=== PATIENT | male | born 1990 | race American Indian/Alaskan Native ===

== ENCOUNTER 2019-03-14 12:35 | Emergency (ER) | payer OTHER ==
[2019-03-14 12:41] VITALS: BP 127/75
[2019-03-14] MEDS ORDERED: LEVAQUIN 750MG/150ML 0 MG/0 ML BAG IV ONE (13:17)
[2019-03-14] MEDS ORDERED: NACL 0.9% 500 ML 0 ML ONE (13:44)
--- NOTE | 2019-03-14 14:22 | XRay Report ---
LEFT TIBIA AND FIBULA, 2 VIEWS INDICATION: left lower leg pain. COMPARISON: None. IMPRESSION: No acute osseous or soft tissue abnormality. No significant DJD. Signer Name: Moises Rai Jr, MD Signed: 03/14/2019 2:18 PM Workstation Name: [id number]
--- NOTE | 2019-03-14 15:01 | Emergency Department Report ---
ED General Adult HPI - General Chief complaint: Extremity Problem,Nontraumatic Stated complaint: LT LEG PAIN/RT EYE CHECK Time Seen by Provider: 03/14/19 14:39 Source: patient Mode of arrival: Ambulatory Limitations: No Limitations - History of Present Illness Initial comments: Patient is a 29-year-old male presents the emergency room with complaints of left anterior suggs pain that began last week. pt states that he was jumping over a guard rail and hit his suggs against the rail. Patient states he has had some pain to the site. Patient denies any cuts or abrasions. He has been ambulatory without difficulty. Patient also presents emergency room with complaints of right lower eyelid edema that began 4 days ago. pt states that he has a stye and has been using warm compresses but still not gone down yet. he denies any vision changes or anything getting in the eye. He denies any past medical history or allergies to medications. pt does wear contacts and currently has them in. - Related Data Previous Rx's Medication Instructions Recorded Last Taken Type Erythromycin [Erythromycin Ophth 1 applic OD QID 5 Days #1 tube 03/14/19 Unknown Rx Oint] Allergies Allergy/AdvReac Type Severity Reaction Status Date / Time No Known Allergies Allergy Verified 03/14/19 12:37 ED Review of Systems ROS: Stated complaint: LT LEG PAIN/RT EYE CHECK Other details as noted in HPI Comment: All other systems reviewed and negative ED Past Medical Hx - Past Medical History Previous Medical History?: No - Surgical History Past Surgical History?: No - Social History Smoking Status: Never Smoker Substance Use Type: None - Medications Home Medications: Home Medications Medication Instructions Recorded Confirmed Last Taken Type Erythromycin [Erythromycin Ophth 1 applic OD QID 5 Days #1 tube 03/14/19 Unknown Rx Oint] ED Physical Exam - General Limitations: No Limitations General appearance: alert, in no apparent distress - Head Head exam: Present: atraumatic, normocephalic - Eye Eye exam: Present: PERRL, EOMI, other (edema present to the right lower eyelid, internal hordeolum present to the right lower eyelid which comes to a white head). Absent: scleral icterus, conjunctival injection, nystagmus, periorbital tenderness - ENT ENT exam: Present: mucous membranes moist - Respiratory Respiratory exam: Present: normal lung sounds bilaterally. Absent: respiratory distress, wheezes, rales, rhonchi, stridor, accessory muscle use, decreased breath sounds, prolonged expiratory - Cardiovascular Cardiovascular Exam: Present: regular rate, normal rhythm, normal heart sounds. Absent: systolic murmur, diastolic murmur, rubs, gallop - Extremities Exam Extremities exam: Present: other (TTP over the left anterior suggs, no deformities, contusion present to the left suggs, 2+ dp and pt pulses, sensation intact) - Neurological Exam Neurological exam: Present: alert, oriented X3 - Psychiatric Psychiatric exam: Present: normal affect, normal mood - Skin Skin exam: Present: warm, dry, intact ED Course Vital Signs 03/14/19 12:40 Temperature 98.3 F Pulse Rate 73 Respiratory 20 Rate Blood Pressure 127/75 O2 Sat by Pulse 98 Oximetry ED Medical Decision Making - Radiology Data Radiology results: report reviewed LEFT TIBIA AND FIBULA, 2 VIEWS INDICATION: left lower leg pain. COMPARISON: None. IMPRESSION: No acute osseous or soft tissue abnormality. No significant DJD. Signer Name: Moises Rai Jr, MD Signed: 03/14/2019 2:18 PM Workstation Name: [id number] Transcribed By: TTR Dictated By: MOISES RAI JR, MD Electronically Authenticated By: MOISES RAI JR, MD Signed Date/Time: 03/14/19 1418 - Medical Decision Making Patient is a 29-year-old male presents the emergency room with complaints of left anterior suggs pain that began last week. pt states that he was jumping over a guard rail and hit his suggs against the rail. Patient states he has had some pain to the site. Patient denies any cuts or abrasions. He has been ambulatory without difficulty. Patient also presents emergency room with complaints of right lower eyelid edema that began 4 days ago. pt states that he has a stye and has been using warm compresses but still not gone down yet. he denies any vision changes or anything getting in the eye. He denies any past medical history or allergies to medications. pt does wear contacts and currently has them in. vitals are normal. on exam: edema present to the right lower eyelid, internal hordeolum present to the right lower eyelid which comes to a white head, TTP over the left anterior suggs, no deformities, contusion present to the left suggs, 2+ dp and pt pulses, sensation intact. XR of the left tib/fib with no acute process. pt given prescription for erythromycin ophthalmic ointment. advised pt to please use medication as prescribed. please take out your contacts and wear your eyeglasses for the next several days. use warm compresses three times a day to the right lower eyelid. may use ice, ibuprofen or tylenol, and leg elevation for left leg pain. follow up with a primary care doctor in the next 2-3 days. return to the emergency room for any new or worsening symptoms. Critical care attestation.: If time is entered above; I have spent that time in minutes in the direct care of this critically ill patient, excluding procedure time. ED Disposition Clinical Impression: Pain in left suggs Contusion of lower leg, left Qualifiers: Encounter type: initial encounter Qualified Code(s): S80.12XA - Contusion of left lower leg, initial encounter Internal hordeolum of right eye Qualifiers: Eyelid: lower Qualified Code(s): H00.022 - Hordeolum internum right lower eyelid Disposition: TO HOME OR SELFCARE Is pt being admited?: No Does the pt Need Aspirin: No Condition: Stable Instructions: Stye (ED), Arthralgia (ED) Additional Instructions: please use medication as prescribed. please take out your contacts and wear your eyeglasses for the next several days. use warm compresses three times a day to the right lower eyelid. may use ice, ibuprofen or tylenol, and leg elevation for left leg pain. follow up with a primary care doctor in the next 2-3 days. return to the emergency room for any new or worsening symptoms. Prescriptions: Erythromycin [Erythromycin Ophth Oint] 1 applic OD QID 5 Days #1 tube Referrals: PRIMARY CARE, [Primary Care Provider] - 2-3 Days Forms: Work/School Release Form(ED) Time of Disposition: 15:02 Print Language: PUERTO RICAN
== END 2019-03-14 15:10 | disposition home or self-care (01) ==
LOC: ED 12:35
DX: S80.12XA Contusion of left lower leg, initial encounter (principal); H00.022 Hordeolum internum right lower eyelid; W22.8XXA Striking against or struck by other objects, initial encounter; Y93.39 Activity, other involving climbing, rappelling and jumping off; Y92.89 Other specified places as the place of occurrence of the external cause; Y99.8 Other external cause status
CPT/HCPCS: J1956; J7040